=== PATIENT | female | born 1965 | race Hispanic/Latino ===

== ENCOUNTER 2018-11-27 01:35 | Emergency (ER) | payer OTHER, BC ==
--- OUTSIDE RECORDS SUMMARY | 2018-11-27 01:37 | XMS REPORT ---
:1965 Author Organization [facility] Address [address] [place] [address] Care Team Providers Name Role Phone Unavailable Unavailable Unavailable Problems This patient has no known problems. Allergies, Adverse Reactions, Alerts This patient has no known allergies or adverse reactions. Medications This patient has no known medications. Results Test Description Test Time Test Comments Text Results Atomic Results Result Comments [place], ERCP 2017-08-20 12:29:00 Reason for exam:->bile duct FINAL REPORT PATIENT ID: dilation,abnormal imaging [id number] ERCP, 08/20/2017 Clinical History: Bile duct dilatation Impression: Intraoperative images are obtained. The radiologist is not present during the procedure. Fluoroscopy was not performed by the undersigned. Images are presented for interpretation at the completion of the procedure. Please refer to the procedure report for more details. Five images are submitted demonstrating interrogation of the common duct. Fluoroscopy time is 2.4 minutes. Signed: Nicho Garcia Verified Date/Time: 08/20/2017 12:29:11 Reading Location: [address] Radiology Reading Room
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
[2018-11-27] MEDS ORDERED: MEPERIDINE HCL 25 MG/0.5 ML ONE (02:18)
[2018-11-27] MEDS ORDERED: ONDANSETRON 4 MG/2 ML VIAL ONE (02:20)
[2018-11-27 02:34] LABS: Absolute Lymphocytes (CBC) 0.7 K/uL (0.7-4.9); Absolute Monocytes 0.3 K/uL (0.1-1.3); Absolute Neutrophil 3.1 K/uL (1.8-8.0); Basophils % 0.1 % (0-1.3); Eosinophils % 1.3 % (0-4.4); Hematocrit 35.7 % (36.0-45.0); Lymphocytes % 16.2 % (15.3-44.8); MPV 7.7 fL (7.6-11.3); Monocytes % 7.8 % (3.3-12.3); RBC Red Blood Cell Count 3.72 M/uL (3.86-4.86)
[2018-11-27 02:49] LABS: Albumin 2.8 g/dL (3.4-5.0); Bilirubin Direct 2.6 mg/dL (0-0.2); Bilirubin Total 4.2 mg/dL (0.2-1.0); Potassium 4.1 mmol/L (3.5-5.1); Protein, Total 6.6 g/dL (6.4-8.2)
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
[2018-11-27 04:33] LABS: Anisocytosis 1+; Blood Morphology Comment NOTED (NOT SEEN); Platelet Estimate DECR; Polychromasia 2+; Urine White Blood Cell Casts OK
[2018-11-27 04:42] VITALS: BP 132/67; O2SAT 99
== END 2018-11-27 04:10 | disposition home or self-care (01) ==
LOC: ER 01:35
DX: D69.6 Thrombocytopenia, unspecified (principal); K74.69 Other cirrhosis of liver; K86.1 Other chronic pancreatitis; Z88.5 Allergy status to narcotic agent
CPT/HCPCS: 85025; 80048; 36415; 80076; 83690; 96375; 96374; 99284; J2175; J2405